=== PATIENT | male | born 1955 | race Caucasian/White ===

== ENCOUNTER 2016-04-27 22:42 | Emergency (ER) | payer OTHER ==
[~2016-04-27] VITALS: Ht 177.8 cm; Wt 118.2 kg
[~2016-04-27 22:42] MED LIST: ASPI325T32 PO; ATEN25TA PO; ATOR80TA77 PO; CHOL40003 PO; CLOP75TA28 PO; OLME20TA3 PO
[2016-04-27 22:44] VITALS: BP 176/88; PULSE 70; RESP 20; O2SAT 99
--- NOTE | 2016-04-27 22:59 | ED.REPORT ---
HPI-Chest Pain 40 and Over Date of Service Apr 27, 2016 ED Provider: Nii Lombardi DO Pt is a 61 year old male w/ a hx of HTN and CAD treated w/ stents who presents to the ED accompanied by his due to intermittent, increasing, substernal chest pain that started late this morning while eating lunch. It continued to increase in severity throughout the afternoon while he was watching TV. He waited to come into the ED because he assumed it was indigestion and would eventually subside. He is currently experiencing symptoms while at the ED. He tried a variety of antacids to try to michelle symptoms. Pt denies diaphoresis and dyspnea. He does not have hx of heart burn issues. Pt had a heart attack one year ago and reports that this pain feels very different. When he had a heart attack the sensation was a "heavy pressure," but also reminded him of indigestion. Nursing Notes Stated Complaint: CHEST PAIN Chief Complaint: Chest Pain Nursing Notes Reviewed: Yes Allergies: Coded Allergies: Milk Containing Products (Verified Allergy, Intermediate, stomach cramps, diarrhea, 05/04/15) Scheduled Aspirin (Aspirin) 325 Mg Tablet 325 MG PO DAILY Atenolol (Atenolol) 25 Mg Tablet 25 MG PO DAILY Atorvastatin Calcium (Atorvastatin Calcium) 80 Mg Tablet 80 MG PO HS Cholecalciferol (Vitamin D3) (Vitamin D3) 4,000 Unit Capsule 4,000 UNIT PO DAILY Clopidogrel (Clopidogrel) 75 Mg Tablet 75 MG PO DAILY Olmesartan (Benicar) 20 Mg Tablet 20 MG PO DAILY General Time Seen by MD: 22:58 Chief Complaint Chest pain Hx Obtained From: Patient Arrived By: Walk-in Sudden in Onset?: Yes Onset Occurred: 9 - 12 hours ago Symptom Duration: Since onset Location: : Substernal Quality: Pressure Radiation: : Does not radiate Severity: Current: Moderate Recent Healthcare: No recent doctor visit, No recent hospitalization Similar Sx Previous: No Past Medical History Past Medical History CAD treated w/ stents Reports: Hypertension Past Surgical History none reported Smoking History Former Smoker Social History Other Social History: Good social support, , Local resident Ambulatory Status Independent Review of Systems Respiratory: Denies: Dyspnea on exertion Cardiovascular: Reports: Chest pain Skin: Denies Diaphoresis Complete sys rev & neg: except as marked. Physical Exam Initial Vital Signs Initial VS: Reviewed Head / Eyes: Atraumatic, Normocephalic, PERRL ENT: Mucous membranes moist, Conjunctiva normal, No scleral icterus Neck: Supple, Non-tender, Full range of motion Skin: Warm, Dry, No cyanosis Neurologic: Alert, Oriented, Nonfocal Psychiatric: Mood/affect normal, Behavior normal, Normal thought content General/Constitutional: Awake, Alert, No acute distress, Cooperative, Not toxic appearing Respiratory / Chest: Atraumatic, Breath sounds NL, Breath sounds = bilat, No respiratory distress, No rales, No rhonchi, No wheezing, No retractions Cardiovascular: Heart rate NL, Regular rhythm, Heart sounds NL, No gallop Heart Sounds / Murmur: Positive: Systolic murmur present.. (II/, heard best at upper sternal border) Abdomen: Atraumatic, Soft, No guarding, No rebound Mild upper abdominal tenderness distended abdomen epigastric pain Lower Extremity / Pelvis / MS: Atraumatic, Inspection NL, Full range of motion , No swelling, Non-tender, No erythema, No edema Interpretation & Diagnostics Lab Results Interpretation Test 04/27/16 23:03 White Blood Count 10.9th/mm3 (3.8-10.1) Red Blood Count 4.54mil/mm3 (4.40-5.80) Hemoglobin 13.7g/dL (13.8-17.2) Hematocrit 41.3% (41.0-50.0) Mean Corpuscular Volume 91.0fL (81-100) Mean Corpuscular Hemoglobin 30.2pg (27.0-35.0) Mean Corpuscular Hemoglobin Concent 33.2% (32.0-37.0) Red Cell Distribution Width 13.2% (12.3-15.4) Platelet Count 224bil/L (150-400) Neutrophils (%) (Auto) 70.6% (40-74) Lymphocytes (%) (Auto) 17.6% (14-46) Monocytes (%) (Auto) 6.8% (4-12) Eosinophils (%) (Auto) 4.2% (0-5) Basophils (%) (Auto) 0.4% (0-3) Sodium Level 136mEq/L (134-144) Potassium Level 4.1mEq/L (3.5-5.2) Chloride Level 99mEq/L (97-108) Carbon Dioxide Level 24mmol/L (18-29) Blood Urea Nitrogen 15mg/dL (8-27) Creatinine 0.99mg/dL (0.76-1.27) Estimat Glomerular Filtration Rate 82mL/min (>59) Glucose Level 123mg/dL (60-99) Calcium Level 9.0mg/dL (8.5-10.1) Magnesium Level 2.0mg/dL (1.6-2.6) Total Bilirubin 0.2mg/dL (0.0-1.2) Aspartate Amino Transf (AST/SGOT) 20U/L (0-50) Alanine Aminotransferase (ALT/SGPT) 27U/L (0-44) Alkaline Phosphatase 96U/L (25-160) Troponin T 0.010ug/L (0.0-0.011) Total Protein 7.0g/dL (6.4-8.4) Albumin 4.2g/dL (3.4-5.0) Lipase 25U/L (13-60) Hold Dozier Top Tube Received (Received) ECG Interpretation ECG Interpretation: inverted t-waves in lead 3 slightly more prominent then 3/3/[address] depression or elevation Time: 11:31 Interpreted by: ED physician Normal ECG Interpretation: Normal sinus rhythm (65) X-Ray Chest Interpretation Chest Xray Interpretation: IMPRESSION: no acute findings View: Portable Interpretation / Wet Read by: Wet read ED physician Re-Eval/Medical Decision Time of Eval: 23:50 Patient Status: Condition improved, Pain improved Re-Evaluation/Progress Note: Pt rechecked. Pain down from a 6/10 to a 3/10. EKG, blood tests, and chest x-ray look completely normal. Troponin levels are normal. Talk with your doctor about your blood sugar. Counseled Regarding: Diagnosis, Lab results, Need for follow-up, When/why to return to ED Discharge & Departure Primary Impression: GERD (gastroesophageal reflux disease) Esophagitis presence: esophagitis presence not specified Qualified Code: K21.9 - Gastro-esophageal reflux disease without esophagitis Additional Impressions: Epigastric pain Bloating Hyperglycemia Ruled Out: Acute coronary syndrome Disposition: Home Discharge Condition All VS Reviewed: Yes Condition: Stable Patient Instructions: Gastroesophageal Reflux Disease (ED), Chest Pain (ED) Additional Instructions: Thank you for coming to the Emergency Department today. Your EKG, blood work, and chest x-ray are all completely normal and there are no signs of acute coronary syndrome. I am going to put you on an antacid, Omeprazole 20 mg, and see if this helps alleviate your symptoms. Follow up with your primary care physician regarding your symptoms and elevated blood sugar. Return to the Emergency Department for any new or worsening symptoms. We hope you feel better soon! Referrals: Michael yLn DO (PCP) Scribe Attestation Portion of this note were transcribed by Heidi Florentnio. Dr. Maria C Mclaughlin, personally performed the history, physical exam, and medical decision-making: I reviewed and confirmed the accuracy for the information in the transcribed note. Signed by: erik Hammer, 04/27/16 [id number] copies to: Michael Lyn Gary R DO Apr 27, 2016 22:59 HEIDI FLORENTINO Apr 27, 2016 23:20 Scribe Attestation Portion of this note were transcribed by Heidi Florentino. Dr. Maria C Mclaughlin, personally performed the history, physical exam, and medical decision-making: I reviewed and confirmed the accuracy for the information in the transcribed note. Signed by: erik Hammer, 04/27/16 [id number] copies to: Michael Lyn Gary R DO Apr 27, 2016 22:59 HEIDI FLORENTINO Apr 27, 2016 23:20
[2016-04-27] MEDS ORDERED: Nitroglycerin 2% 1 Gm Ointment TOPICAL SCH (23:05)
[2016-04-27 23:15] VITALS: BP 158/85; PULSE 65; RESP 19; O2SAT 96
[2016-04-27 23:18] LABS: BASOPHILS % (AUTO) 0.4 % (0-3); EOSINOPHILS % (AUTO) 4.2 % (0-5); MONOCYTES % (AUTO) 6.8 % (4-12); Mean Corpuscular Hemoglobin 30.2 pg (27.0-35.0); NEUTROPHILS % (AUTO) 70.6 % (40-74); Platelet Count 224 bil/L (150-400)
[2016-04-27] MEDS ORDERED: LidocaineVisc 2%:Antacid 1:1 10 mL Syringe PO ONE (23:20)
[2016-04-27 23:38] LABS: TROPONIN T 0.01 ug/L (0.0-0.011)
[2016-04-28 00:28] VITALS: BP 158/85; PULSE 65; RESP 19; O2SAT 96
--- NOTE | 2016-04-28 09:04 | DRSVH ---
PROCEDURE: X-RAY CHEST ONE VIEW, PORTABLE ([id number]) INDICATIONS: chest pain TECHNIQUE: One view of the chest was acquired. COMPARISON: None. FINDINGS: Surgical changes and devices: No threat monitoring analyst leads are seen over the chest. Lungs and pleura: No pleural effusions or pneumothorax. Lungs are clear. The pulmonary vasculature is normal. Mediastinum: Mediastinal contours appear normal. Heart size is normal. Bones and chest wall: No suspicious bony lesions. Overlying soft tissues appear unremarkable. IMPRESSION: Acute disease is not seen in the upright portable chest Dictated by: Juan Piedra M.D. on 04/28/2016 at 9:01 Approved by: Juan Piedra M.D. on 04/28/2016 at 9:02
== END 2016-04-28 00:08 | disposition home or self-care (01) ==
LOC: SED 22:42
DX: K21.9 Gastro-esophageal reflux disease without esophagitis (principal); R73.9 Hyperglycemia, unspecified; I10 Essential (primary) hypertension; I25.10 Atherosclerotic heart disease of native coronary artery without angina pectoris; Z87.891 Personal history of nicotine dependence; Z79.82 Long term (current) use of aspirin; Z91.018 Allergy to other foods